=== PATIENT | female | born 1960 | race Caucasian/White ===

== ENCOUNTER → 2016-12-04 | Outpatient (CLI) | payer BC ==
[~2016-12-04] MED LIST: CALTRATE-600 W600 MG PO; FLOMAX0.4 MG PO; NO HOME MEDICATIONS; PERCOCET 325 MG1 TA2 PO; ZOFRAN4 M1 PO
== END ==
LOC: MC.RAD 12:44
DX: Z12.31 Encounter for screening mammogram for malignant neoplasm of breast (principal); D24.2 Benign neoplasm of left breast; D24.1 Benign neoplasm of right breast; Z80.3 Family history of malignant neoplasm of breast

== ENCOUNTER → 2016-12-10 | Outpatient (CLI) | payer BC | LOC: COL.VAS 07:44 | DX: I07.1 Rheumatic tricuspid insufficiency (principal); R90.81 Abnormal echoencephalogram ==

== ENCOUNTER → 2018-01-09 | Outpatient (CLI) | payer BC | LOC: MC.RAD 09:30 | DX: Z12.31 Encounter for screening mammogram for malignant neoplasm of breast (principal); Z87.42 Personal history of other diseases of the female genital tract ==

== ENCOUNTER → 2019-03-04 | Outpatient (CLI) | payer BC | LOC: MC.RAD 15:24 | DX: Z12.31 Encounter for screening mammogram for malignant neoplasm of breast (principal) ==

== ENCOUNTER → 2020-06-13 | Outpatient (CLI) | payer BC | LOC: MC.RAD 11:22 | DX: Z12.31 Encounter for screening mammogram for malignant neoplasm of breast (principal) ==

== ENCOUNTER → 2021-09-07 | Outpatient (CLI) | payer BC | LOC: MC.RAD 08:32 | DX: Z12.31 Encounter for screening mammogram for malignant neoplasm of breast (principal); M85.80 Other specified disorders of bone density and structure, unspecified site ==